=== PATIENT | male | born 1970 | race Caucasian/White ===

== ENCOUNTER 2022-07-07 13:28 | Outpatient (CLI) | payer MEDICAID, SELFPAY ==
[2022-07-07 21:41] LABS: Albumin* 4.5 g/dL (3.3-5.0); Chloride* 103 mmol/L (96-114); Potassium* 5.1 mmol/L (3.6-5.1); Sodium* 139 mmol/L (135-149)
[2022-07-07 21:43] LABS: Carbon Dioxide* 26 mmol/L (20-32); Cholesterol* 221 mg/dL (90-199); Estimated Glomerular Filt Rate 90 ml/min
[2022-07-07 21:44] LABS: Alanine Aminotransferase* 49 U/L (4-50); Alkaline Phosphatase* 77 U/L (40-150); Aspartate Amino Transferase* 34 U/L (12-35); Bilirubin Total* 0.6 mg/dL (0.1-1.5); Blood Urea Nitrogen* 25 mg/dL (7-30); Calcium* 9.4 mg/dL (8.4-10.6); Glucose* 97 mg/dL (60-115); Triglycerides* 197 mg/dL (40-149)
[2022-07-07 21:45] LABS: HDL Cholesterol* 34 mg/dL (>=40); LDL Cholesterol Calculated 148 mg/dL (<100)
[2022-07-07 22:15] LABS: PSA Screen* 0.75 ng/mL (0.10-4.00)
== END 2022-07-07 13:29 | disposition home or self-care (01) ==
PROVIDERS: PCP Family Medicine; Visit Provider Family Medicine
DX: I10 Essential (primary) hypertension (principal); Z12.5 Encounter for screening for malignant neoplasm of prostate; Z13.6 Encounter for screening for cardiovascular disorders; Z83.3 Family history of diabetes mellitus; Z82.61 Family history of arthritis; M06.9 Rheumatoid arthritis, unspecified; E66.9 Obesity, unspecified; Z68.41 Body mass index [BMI] 40.0-44.9, adult; R60.9 Edema, unspecified; M17.10 Unilateral primary osteoarthritis, unspecified knee; M25.551 Pain in right hip; M25.552 Pain in left hip; M51.36 Other intervertebral disc degeneration, lumbar region
CPT/HCPCS: 80053; 80061; 84153